=== PATIENT | female | born 1960 | race Caucasian/White ===

== ENCOUNTER → 2016-06-30 | Outpatient (CLI) | payer OTHER | LOC: MC.RAD 16:29 | DX: Z12.31 Encounter for screening mammogram for malignant neoplasm of breast (principal); N64.89 Other specified disorders of breast ==

== ENCOUNTER → 2016-07-08 | Outpatient (CLI) | payer OTHER | LOC: MC.RAD 07:07 | DX: D24.1 Benign neoplasm of right breast (principal) ==

== ENCOUNTER → 2018-08-09 | Outpatient (CLI) | payer BC | LOC: MC.RAD 07:17 | DX: Z12.31 Encounter for screening mammogram for malignant neoplasm of breast (principal); Z98.890 Other specified postprocedural states ==

== ENCOUNTER → 2019-08-13 | Outpatient (CLI) | payer BC | LOC: MC.RAD 09:50 | DX: Z12.31 Encounter for screening mammogram for malignant neoplasm of breast (principal); Z98.890 Other specified postprocedural states ==

== ENCOUNTER 2020-11-19 08:22 | Day surgery (SDC) | payer BC ==
[~2020-11-19] VITALS: Ht 160 cm; Wt 77.2 kg
[2020-11-19] MEDS ORDERED: SYNTHROID0.1 MG/TAB PO (08:55)
[2020-11-19] MEDS ORDERED: COZAAR100 MG PO (08:55)
[2020-11-19] MEDS ORDERED: TOPROL XL 25MG25 MG (08:56)
[2020-11-19 08:57] VITALS: BP 160/93; PULSE 86; TEMP 98.5
[2020-11-19 10:35] VITALS: BP 124/79; PULSE 71; TEMP 97
--- NOTE | 2020-11-19 10:35 | NUR ---
1035-Patient arrives to [facility]4 s/p colonoscopy with Dr. Galvan. Ambulates with standby assistance from cart to recliner and she did well. Connected to monitor and vitals remain stable. Abdomen is soft and nontender to palpation. Given ice water per request. Bedside report received from LION Edouard.
[2020-11-19 10:50] VITALS: BP 123/74; PULSE 68; TEMP 97.8
--- NOTE | 2020-11-19 10:50 | NUR ---
1050-Patient is tolerating water without any nausea or vomiting. She denies wanting anything to eat at this time. Vitals remain stable.
[2020-11-19 11:05] VITALS: BP 125/74; PULSE 64; TEMP 97.6
--- NOTE | 2020-11-19 11:05 | NUR ---
1105-Patient continues resting comfortably and is doing well. Vitals are stable. She verbalized that she is ready to discharge home. Her son is in the lobby to drive her home. IV site removed from her right hand and tip of catheter is intact. No active bleeding noted. Cotton ball and tape applied. She is getting dressed and prepared for discharge home. 1115-Discussed discharge instructions with her. Copy provided to her. She verbalized understanding and denies having any further questions at this time. 1120-Taken via wheelchair to the front lobby with belongings and dc instructions. 1125-Assisted into car with her son, Horacio. Discharge complete and instructions are with her.
== END 2020-11-19 11:30 | disposition home or self-care (01) ==
LOC: SDCO 08:22
DX: Z12.11 Encounter for screening for malignant neoplasm of colon (principal); K57.30 Diverticulosis of large intestine without perforation or abscess without bleeding; R73.03 Prediabetes; I10 Essential (primary) hypertension; E78.5 Hyperlipidemia, unspecified; E03.9 Hypothyroidism, unspecified; J31.0 Chronic rhinitis; E66.3 Overweight; Z79.899 Other long term (current) drug therapy; Z79.890 Hormone replacement therapy
CPT/HCPCS: J2704; J7120

== ENCOUNTER → 2021-09-06 | Outpatient (CLI) | payer BC ==
[~2021-09-06] MED LIST: COZAAR100 MG PO; SYNTHROID0.1 MG/TAB PO; TOPROL XL 25MG25 MG
== END ==
LOC: MC.RAD 07:05
DX: Z12.31 Encounter for screening mammogram for malignant neoplasm of breast (principal)

== ENCOUNTER → 2022-04-08 | Outpatient (CLI) | payer BC | LOC: COL.RAD 06:56 | DX: K76.0 Fatty (change of) liver, not elsewhere classified (principal); N18.31 Chronic kidney disease, stage 3a ==

== ENCOUNTER → 2023-11-15 | Outpatient (CLI) | payer BC | LOC: MC.RAD 07:26 | DX: Z12.31 Encounter for screening mammogram for malignant neoplasm of breast (principal) ==